=== PATIENT | male | born 1970 | race Caucasian/White ===

== ENCOUNTER → 2020-08-15 10:19 | Outpatient (BNVA) | payer OTHER, SELFPAY | PROVIDERS: PCP Physician Assistant; Visit Provider Orthopaedic Surgery | DX: M17.12 Unilateral primary osteoarthritis, left knee (principal) | CPT/HCPCS: 99202 ==

== ENCOUNTER 2022-12-05 10:54 | Outpatient (REF) | payer OTHER, SELFPAY ==
--- NOTE | ~2022-12-05 | XR_ITS ---
EXAMINATION: XR FOOT, RIGHT CLINICAL INFORMATION: Pain. COMPARISON: None available. TECHNIQUE: AP, lateral, and oblique views of the right foot. FINDINGS: Bony alignment and mineralization are normal. No fracture, dislocation or right ankle joint effusion is seen. Boehler's angle is normal. There is a moderate plantar calcaneal spur. There is moderately severe osteoarthritic change of the first metatarsophalangeal joint. There is mild bunion formation. No focal soft tissue swelling, gas or foreign body is seen. XR/XR foot RT 2V IMPRESSION: 1. No fracture, dislocation or right ankle joint effusion is seen. 2. There is a moderate plantar calcaneal spur. 3. There is marked osteoarthritic change of the first metatarsophalangeal joint. 4. There is mild bunion formation.
== END 2022-12-05 10:55 | disposition home or self-care (01) ==
LOC: HO.XRAY 10:54
PROVIDERS: PCP Physician Assistant; Visit Provider Nurse Practitioner Family
DX: M79.671 Pain in right foot (principal)
CPT/HCPCS: 73620

== ENCOUNTER → 2024-07-16 16:11 | Outpatient (BNVA) | payer OTHER, SELFPAY | PROVIDERS: PCP Physician Assistant; Visit Provider Nurse Practitioner Family | DX: R57.0 Cardiogenic shock (principal); I42.9 Cardiomyopathy, unspecified; F33.1 Major depressive disorder, recurrent, moderate; F11.10 Opioid abuse, uncomplicated; J69.0 Pneumonitis due to inhalation of food and vomit; F17.219 Nicotine dependence, cigarettes, with unspecified nicotine-induced disorders; Z71.6 Tobacco abuse counseling | CPT/HCPCS: 96127; 99212 ==

== ENCOUNTER 2024-07-21 11:25 | Outpatient (AMB) | payer OTHER, SELFPAY ==
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
[2024-07-21 11:55] VITALS: BP 134/70; PULSE 78; O2SAT 98; BMI 26.0
--- OUTSIDE RECORDS SUMMARY | 2024-07-21 13:20 | XMS_ITS | Clinical Summary ---
Author Organization [facility] Address [address] [place] [address] Phone Care Team Providers Care Director Transition Name Role Phone Physician, Pcp Unknown Primary Care Provider Colleen vailable Allergies No known active allergies Medications ibuprofen (ADVIL,MOTRIN) 800 mg tablet 04/11/2024 Active Medical History Medical History Date Comments Known health problems: none Social History Tobacco Use Types Packs/Day Years Used Date Smoking Tobacco: Former Cigarettes Smokeless Tobacco: Never Tobacco Cessation:Counseling Given: Not Answered Sex and Gender Information Value Date Recorded Sex Assigned at Not on file Legal Sex Male 10:50 PM EST Gender Identity Not on file Sexual Orientation Not on file Obstetrics History Last Filed Vital Signs Vital Sign Reading Time Taken Comments Blood Pressure 128/70 04/12/2024 6:45 AM EST Pulse 93 04/12/2024 6:45 AM EST Temperature 36.4 ??C (97.5 ??F) 04/12/2024 6:45 AM ES T Respiratory Rate 18 04/12/2024 6:45 AM EST Oxygen Saturation 98% 04/12/2024 6:45 AM EST Inhaled Oxygen Concentration - - Weight 81.6 kg (180 lb) 04/11/2024 5:51 PM EST Height 177.8 cm (5' 10 ) 04/11/2024 5:51 PM EST Body Mass Index 25.83 04/11/2024 5:51 PM EST Plan of Treatment Health Maintenance Due Date Last Done Comments Hepatitis B Vaccines (1 of 3 - 19+ 3-dose series) 10/08/1987 Zoster Vaccines (1 of 2) 2018 COVID-19 Vaccine (2023-2 5 season) 2024 Influenza Vaccine (#1) 2024 8, 02/03/2016 Cholesterol Screening (Lipid Panel) 03/18/2024 Colorectal Cancer Screening: Colonoscopy 03/18/2024 Depression Screening 03/18/2024 HIV Screening 03/18/2024 Hepatitis C Screening 03/18/2024 Social Influencers of Health Screening 03/18/2024 DTaP,Tdap,and Td Vaccines (3 - Td or Tdap) 07/02/2031 07/02/2021, 07/26/2020 HIB Vaccines Aged Out No longer eligi ble based on patient's age to complete this topic HPV Vaccines Aged Out No longer eligi ble based on patient's age to complete this topic Hepatitis A Vaccines Aged Out No long er eligible based on patient's age to complete this topic IPV Vaccines Aged Out No longer eligi ble based on patient's age to complete this topic MMR Vaccines Aged Out No longer eligi ble based on patient's age to complete this topic Meningococcal ACWY Vaccine Aged Out N o longer eligible based on patient's age to complete this topic Pneumococcal Vaccine: Pediatrics (0 to 5 Years) and At-Risk Patients (6 to 64 Years) Aged Out No longer eligible b ased on patient's age to complete this topic RSV Immunization Patients Under 20 months Aged Out No longer eligible b ased on patient's age to complete this topic Varicella Vaccines Aged Out No longer eligible based on patient's age to complete this topic Insurance MEDICAID - [place] Care Teams Director Transition Relationship Specialty Start Date End Date Physician, Pcp Unknown PCP - General 04/12/24
== END 2024-07-21 12:29 | disposition home or self-care (01) ==
PROVIDERS: PCP Physician Assistant; Visit Provider Physician Assistant
DX: J34.2 Deviated nasal septum (principal); I42.9 Cardiomyopathy, unspecified; F33.1 Major depressive disorder, recurrent, moderate; S46.311A Strain of muscle, fascia and tendon of triceps, right arm, initial encounter; F19.90 Other psychoactive substance use, unspecified, uncomplicated; L73.2 Hidradenitis suppurativa

== ENCOUNTER → 2024-07-21 11:25 | Outpatient (BNVA) | payer OTHER, SELFPAY | PROVIDERS: PCP Physician Assistant; Visit Provider Physician Assistant | DX: J34.2 Deviated nasal septum (principal); S46.311A Strain of muscle, fascia and tendon of triceps, right arm, initial encounter; F19.90 Other psychoactive substance use, unspecified, uncomplicated; I42.9 Cardiomyopathy, unspecified; F33.1 Major depressive disorder, recurrent, moderate; L73.2 Hidradenitis suppurativa | CPT/HCPCS: 96127; 99212 ==

== ENCOUNTER 2024-07-27 07:34 | Outpatient (REF) | payer OTHER, SELFPAY ==
--- NOTE | ~2024-07-27 | XR_ITS ---
EXAMINATION: XR ELBOW, RIGHT CLINICAL INFORMATION: M25.529 - Pain in unspecified elbow COMPARISON: None available. TECHNIQUE: AP, lateral, and oblique views of the right elbow. FINDINGS: No fracture, dislocation, or suspicious bone lesion. No joint effusion. There are mild to moderate arthritic changes in the elbow joint. There is spurring of the coronoid process. Normal alignment. There is mild soft tissue swelling overlying the region of the triceps tendon. There are 2 calcific bodies also noted in the region of the triceps myotendinous junction. Conversely, these could be foci of myositis ossificans. XR/XR elbow RT min 3V IMPRESSION: 1. No acute bony abnormalities. 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 2. No joint effusion. 3. Mild soft tissue swelling in the region of the triceps tendon. See above. Electronically signed by: Umair Yates MD 07/28/2024 08:45 AM KATHLEEN
--- OUTSIDE RECORDS SUMMARY | 2024-07-27 07:37 | XMS_ITS | Clinical Summary ---
Author Organization [facility] Address [address] [place] [address] Phone Care Team Providers Care Pattern Chain Maker Supervisor Name Role Phone Physician, Pcp Unknown Primary [...] of 3 - 19+ 3-dose series) 10/08/1987 Pneumococcal Vaccine: 50+ Years (1 of 1 - PCV) 2018 Zoster Vaccines (1 of 2) 2018 COVID-19 Vaccine ( - 2023-2 5 season) 2024 Influenza Vaccine (#1) 2024 [...] patient's age to complete this topic Meningococcal B Vacine Aged Out No lo nger eligible based on patient's age to complete [...] to complete this topic Insurance MEDICAID - [place] Care Teams Pattern Chain Maker Supervisor Relationship Specialty Start Date End Date Physician, Pcp Unknown PCP - General 04/12/24
== END 2024-07-27 07:35 | disposition home or self-care (01) ==
LOC: HO.HOSX 07:34
PROVIDERS: Visit Provider Physician Assistant
DX: M25.521 Pain in right elbow (principal); M24.121 Other articular cartilage disorders, right elbow
CPT/HCPCS: 73080; 99202

== ENCOUNTER 2024-07-27 09:16 | Outpatient (AMB) | payer OTHER, SELFPAY ==
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
[2024-07-27 09:32] VITALS: BMI 26.0
--- OUTSIDE RECORDS SUMMARY | 2024-07-27 09:55 | XMS_ITS | Clinical Summary ---
Author Organization [facility] Address [address] [place] [address] Phone Care Team Providers Care Treating Machine Operator Name Role Phone Physician, Pcp Unknown Primary [...] to complete this topic Insurance MEDICAID - [place] Care Teams Treating Machine Operator Relationship Specialty Start Date End Date Physician, Pcp Unknown PCP - General 04/12/24
== END 2024-07-27 09:49 | disposition home or self-care (01) ==
PROVIDERS: PCP Physician Assistant; Visit Provider Physician Assistant
DX: M24.121 Other articular cartilage disorders, right elbow (principal)
CPT/HCPCS: 99203

== ENCOUNTER → 2024-07-27 09:20 | Outpatient (BNV) | payer OTHER, SELFPAY | PROVIDERS: Visit Provider Radiology Diagnostic Radiology | DX: M25.521 Pain in right elbow (principal) | CPT/HCPCS: 73080 ==

== ENCOUNTER 2024-09-03 15:01 | Outpatient (AMB) | payer OTHER, SELFPAY ==
--- NOTE | 2024-09-03 15:08 | A.OFFPC_ITS ---
Vital Signs 3 09/03/24 15:10 Height 5 ft 10 in Weight 186 lb 4 oz BMI 26.7 BP 138/74 Blood Pressure Location Lt brachial Position Sitting Pulse 80 Pulse Source Pulse Oximeter Temp 97.3 F Temp Source Temporal Artery Scan Pulse Oximetry (%) 97 Oxygen Delivery Method Room Air Intake Visit Reasons: Annual PE Intake Note: Patient is here today for a physical. Complaint of lump in left arm Ergonomics Technician Required: No Senior Qualitative Researcher: Not Required per policy Accompanied by: Self / Same As Patient Allergies No Known Allergies Allergy (Verified 09/03/24 15:22) Medication List - Last Reconciled 09/03/24 by Nurys Byrd PA-C bupropion HCl XL (Wellbutrin XL) 150 mg PO QAM carvedilol 6.25 mg PO BID doxycycline monohydrate 100 mg PO BID 7 days ibuprofen 800 mg PO Q8H lisinopril 5 mg PO DAILY nicotine (polacrilex) 4 mg buccal Q2H Tobacco use date assessed: 09/03/24 Dental Screening Dental Screen Date: 07/21/24 HPI Annual PE 2 HPI0 Details 53-year-old male with past medical histo ry of erectile dysfunction, substance use disorder, depression, cardiomyopathy last seen 07/2024 by KRISTINA coming in for annual exam. Presenting with concerns regarding subcutaneous lumps. Developed lumps under the skin first noticed a few days ago, which are not painful or itchy. Prefers monitoring the lumps instead of immediate intervention. Reporting Major Depressive Disorder managed with bupropion, recently stopped due to running out. Smoking approximately half a pack of cigarettes per day. Chronic pain affecting knees, hips, and spine, previously evaluated with a recommendation for knee surgery. Seeks medical documentation to address work incapacity due to a tendon injury. He does follow with recovery classes through [facility] Friday and . He has a core coordinator through [facility] to [place] [phone]. Colonoscopy: Previously had Cologuard test not completed would like to do colonoscopy referral placed today. [facility] Surgical History No pertinent past surgical history Family History Father Liver cancer Hepatitis C Cirrhosis Mother No problems noted. 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 1. Little interest or pleasure in doing things: not at all 2. Feeling down, depressed, or hopeless: not at all 3. Trouble falling or staying asleep, or sleeping too much: several days 4. Feeling tired or having little energy: several days 5. Poor appetite or overeating: several days 6. Feeling bad about yourself - or that you are a failure or have let yourself or your family down: several days 7. Trouble concentrating on things, such as reading the newspaper or watching television: not at all 8. Moving or speaking so slowly that other people could have noticed. Or the opposite - being so fidgety or restless that you have been moving around a lot more than usual: several days 9. Thoughts that you would be better off or of hurting yourself in some way: not at all Total score: 5 Depression Screening Interpretation: Positive Depression Screening Follow-up: Existing condition and In treatment Depression Screening Done: Yes Source: Developed by Drs. Kel Danielle, Annie Phipps, Carlos Ghosh and colleagues, with an educational pat from [employer]. Thrive Questionnaire Date Thrive assessed: 09/01/24 I am a: Patient What is your living situation today?: I have a steady place to live Within the past 12 months, did the food you bought not last and you didn't have the money to get more?: Never true Within the past 12 months, did you worry whether your food would run out before you got money to buy more?: Never true Do you have trouble paying for medicines?: I choose not to answer this question Do you have trouble getting transportation to medical appointments?: No Do you have trouble paying your heating and electricity bill?: Yes Do you have trouble taking care of your child, family member or friend?: No Do you have trouble with day-to-day activities such as bathing, preparing meals, shopping, managing finances, etc.?: No Are you currently unemployed and looking for a job?: No Are you interested in more education?: I choose not to answer this question Please select the resources that you would like help with: Utilities Currently or been in a relationship where the following occur: I choose not to answer THRIVE Score: 1 AUDIT C Alcohol Use Questionnaire (AUDIT-C) 1. How often do you have a drink containing alcohol?: Never Total Score: 0 EMIR-7 AMB Questionnaire EMIR-7 Date EMIR - 7 assessed: 07/21/24 Feeling nervous, anxious, or on edge: 0 = Not at all Not being able to stop or control worryin = Not at all Worrying too much about different things: 0 = Not at all Trouble relaxin = Not at all Being so restless that it is hard to sit still: 0 = Not at all Becoming easily annoyed or irritable: 0 = Not at all Feeling afraid as if something awful might happen: 0 = Not at all Total EMIR-7 score (0-4 normal; 5-9 mild; 10-14 moderate; 15-21 severe): 0 Source: Developed by Drs. Kel Danielle, Annie Phipps, Carlos Ghosh and colleagues, with an educational pat from [employer]. EMIR-7 Assessment Billing EMIR-7 Assessment Tool: EMIR-7 Assessment 34881 Review of Systems Const Denies body aches, Denies chills, Reports fatigue, Denies fever(s), Denies headache(s) and Denies poor appetite Eyes Reports no additional complaints ENT Denies dysphagia, Denies dizziness, Denies headache(s) and Denies odynophagia Card Denies chest pain, Denies syncope, Denies edema, Denies irregular heart rhythm, Denies lightheadedness and Denies dyspnea Resp Denies cough and Denies dyspnea GI Denies abdominal pain, Denies constipation, Denies dysphagia, Denies diarrhea, Denies nausea, Denies odynophagia and Denies vomiting Reports no additional complaints Musc Reports no additional complaints and Denies abnormal gait Skin/Breast Reports system reviewed and no additional complaints, except as documented Neuro Denies abnormal gait, Denies dizziness, Denies syncope and Denies headache(s) Psych Reports no additional complaints Endo Reports fatigue Physical exam (Primary Care) Vital Signs: Last Vital Signs Temp 97.3 F 09/03/24 15:10 Pulse 80 09/03/24 15:10 BP 138/74 09/03/24 15:10 Pulse Ox 97 09/03/24 15:10 Oxygen Delivery Method Room Air 09/03/24 15:10 BMI result Body Mass Index 26.7 Tobacco/Smoking Status: Tobacco use Status Tobacco use date assessed 09/03/24 09/03/24 15:14 Patient Tobacco Use Status Current everyday Tobacco 09/03/24 15:16 Tobacco use type Cigarette 09/03/24 15:14 e-Cigarette/Vaping Use Never Used 09/03/24 15:14 PHQ-9: PHQ-9 Score PHQ-9: Total score 5 09/03/24 15:40 Depression Screening Interpretation: Positive Depression Screening Follow-up: Existing condition and In treatment Thrive Assessment: Date of Thrive Assessment Date Thrive assessed 09/01/24 09/03/24 15:14 Currently or been in a relationship where the following occur: I choose not to answer Const General: cooperative, healthy appearing, comfortable and no acute distress Orientation/consciousness: patient oriented x3 HENMT Head: Yes normocephalic Ears: hearing grossly normal bilaterally, external ears normal, TM's normal bilaterally and EAC's normal General nose exam: Normal external nose present Face and sinus: Yes normal facial exam and Yes sinuses nontender Mouth: Normal oral and palatal mucosa present and tongue normal Throat: Yes posterior oropharynx normal Eyes General: appearance normal, both eyes and all related structures Conjunctivae: conjunctivae normal Pupils: Equal, round and reactive pupils present EOM: EOMs intact bilaterally and No Nystagmus present Neck Neck: Yes normal visual inspection, Yes full ROM and Yes no lymphadenopathy Chest Chest palpation & inspection: normal inspection of the chest Resp Effort & Inspection: normal respiratory effort Auscultation: clear to auscultation bilaterally, no crackles, no rales, no rhonchi, no wheezes and breath sounds present Cardio Rate: regular rate Rhythm: regular rhythm Peripheral pulses: radial pulses present and dorsalis pedis present GI Inspection: Yes normal to inspection and No Abdominal wall edema Palpation (GI): Soft to palpation, not firm and nontender Auscultation: normal bowel sounds Rectal Exam - Male: Yes deferred General: Yes no CVA tenderness Back/Spine/Pelvis Back: no CVA tenderness Skin General skin exam: no rashes or lesions noted Neuro General: patient oriented x3 Cranial nerves: Yes Equal, round and reactive pupils present, Yes Midline tongue present, Yes Ability to bilaterally elevate shoulders present and No Nystagmus present Gait exam (Neuro): Normal gait present Extrem General: Yes normal to inspection, Yes full ROM, No no pedal edema and No edema Elbow/forearm/wrist images: 2 1. Soft tissue mass nontender nonerythematous and freely mobile 2. Soft tissue mass nontender nonerythematous and freely mobile Psych Speech and movement: Normal speech and movement present Affect: normal affect Insight: Good insight present (Psych) Judgement: Good judgement present (Psych) Coding Level of Care Code Est Pt Prev Care 40-64y(36448) Diagnoses Internal derangement of elbow M24.129 MDD (major depressive disorder), recurrent episode, moderate F33.1 Cardiomyopathy, unspecified type I42.9 Cardiomyopathy type: unspecified Substance use disorder F19.90 Other male erectile dysfunction N52.8 Erectile dysfunction type: due to other cause Colon cancer screening Z12.11 Annual physical exam Z00.00 Soft tissue mass M79.89 Insomnia G47.00 Additional Codes EMIR-7 Assessment Billing - EMIR-7 Assessment Tool: EMIR-7 Assessment 83784 ([id number]) Assessment & Plan Assessment & Plan (1) Internal derangement of elbow: Code(s): M24.129 - Other articular cartilage disorders, unspecified elbow Category: Medical Plan: Currently following with orthopedics was referred to occupational therapy and has not attended appointments as it is of this time. (2) MDD (major depressive disorder), recurrent episode, moderate: Code(s): F33.1 - Major depressive disorder, recurrent, moderate Category: Medical Plan: Patient has a history major depressive disorder, was recently started on Wellbutrin and does does feel it has been mildly helping but still has symptoms of depression and smoking cravings. Plan to increase to 300 mg and follow up at next visit. (3) Cardiomyopathy: Code(s): I42.9 - Cardiomyopathy, unspecified Category: Medical Qualifiers: Cardiomyopathy type: unspecified Qualified Code(s): I42.9 - Cardiomyopathy, unspecified Plan: As seen. Referral was placed to Cardiology last month (4) Substance use disorder: Code(s): F19.90 - Other psychoactive substance use, unspecified, uncomplicated Category: Medical Plan: Has a history of substance use disorder, recently relapsed with an apparent fentanyl overdose resulting in respiratory arrest in needing to be intubated at [facility]. Also apparently had cardiomyopathy/heart failure and was started on carvedilol and lisinopril. He is currently following with [facility] for classes Friday, Friday, for recovery. (5) Erectile dysfunction: Code(s): N52.9 - Male erectile dysfunction, unspecified Category: Medical Qualifiers: Erectile dysfunction type: due to other cause Qualified Code(s): N52.8 - Other male erectile dysfunction Plan: Denies symptoms at this time. Advised patient to reach out if this changes. (6) Colon cancer screening: Code(s): Z12.11 - Encounter for screening for malignant neoplasm of colon Category: Medical Plan: Referral placed to gastroenterology for colonoscopy. Has had Cologuard in the past but never completed the box and would like to avoid this testing. (7) Annual physical exam: Code(s): Z00.00 - Encounter for general adult medical examination without abnormal findings Category: Medical Plan: Patient is overdue for colonoscopy screening which was ordered today. Blood work is not up-to-date and I reminded the patient to have blood work completed before next visit. Plan to follow up with PCP in October for routine follow up or sooner if new problems arise. (8) Soft tissue mass: Code(s): M79.89 - Other specified soft tissue disorders Category: Medical Plan: Patient has multiple soft tissue masses in the dorsal aspect of the left forearm. Not tender to palpation and not bothersome to the patient unclear of how long they have been there. Patient would like to monitor at this time can consider General surgery referral if he would like them removed. (9) Insomnia: Code(s): G47.00 - Insomnia, unspecified Category: Medical Plan: Patient complaining of insomnia has used melatonin in consistently in the past without good relief. Plan to start on hydroxyzine 10 mg as needed for sleep. Plan The agreed management includes monitoring the subcutaneous lipomas without immediate surgical action and resuming bupropion at an increased dosage of 300 mg for better management of depressive symptoms. The patient has acute insomnia, and hydroxyzine is suggested for trial use. Given the patient's degenerative joint issues, verification of previous surgical advisement may be sought upon SSDI claim support. Preventative health practice will be sustained with the encouragement of regular colon cancer screenings and continuation of blood work previously planned. Smoking cessation strategies are recommended considering current nicotine usage, emphasizing the overall wellness approach to managing ongoing healthcare needs. This note was constructed using voice recognition software. While every effort has been made to ensure accuracy and casing worker, still areas may have been included sometimes these areas may affect the content or meeting of the given symptoms. Total time spent caring for the patient today was 30 minutes. This includes time spent before the visit reviewing the chart, time spent during the visit, and time spent after the visit and documentation. Patient was informed and verbally consented to the use of an ambient scribe for clinic note documentation during this visit. Orders: Referrals 2 Gastroenterology Referral Z12.11 - Encounter for screening for malignant neoplasm of colon Medications: New 2 bupropion HCl XL (Wellbutrin XL) 300 mg PO QAM 90 tabs 0RF hydroxyzine HCl 10 mg PO BEDTIME 30 tabs 0RF
[2024-09-03 15:10] VITALS: BP 138/74; PULSE 80; TEMP 36.3; O2SAT 97; BMI 26.7
== END 2024-09-03 15:39 | disposition home or self-care (01) ==
LOC: HO.HMCH 15:01
DX: M24.129 Other articular cartilage disorders, unspecified elbow (principal); F33.1 Major depressive disorder, recurrent, moderate; I42.9 Cardiomyopathy, unspecified; F19.90 Other psychoactive substance use, unspecified, uncomplicated; N52.8 Other male erectile dysfunction; Z12.11 Encounter for screening for malignant neoplasm of colon; Z00.00 Encounter for general adult medical examination without abnormal findings; M79.89 Other specified soft tissue disorders; G47.00 Insomnia, unspecified

== ENCOUNTER → 2024-09-03 15:01 | Outpatient (BNVA) | payer OTHER, SELFPAY | DX: Z00.01 Encounter for general adult medical examination with abnormal findings (principal); M24.129 Other articular cartilage disorders, unspecified elbow; F33.1 Major depressive disorder, recurrent, moderate; I42.9 Cardiomyopathy, unspecified; F19.90 Other psychoactive substance use, unspecified, uncomplicated; N52.8 Other male erectile dysfunction; M79.89 Other specified soft tissue disorders; G47.00 Insomnia, unspecified | CPT/HCPCS: 96127; 99396 ==

== ENCOUNTER 2024-11-22 12:42 | Outpatient (AMB) | payer OTHER, SELFPAY ==
--- NOTE | 2024-11-22 12:50 | A.OFFVIS_ITS ---
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 He said he has prior history of drug abuse and was clean but then had a slip up and then he had a being in the hospital. At that time because of respiratory failure underwent echocardiogram which had shown LV systolic dysfunction with LVEF of 35-40%. He was then started on carvedilol and lisinopril which he is currently not taking. He said he has not been able to get to the pharmacy on time and has not refill his medications. He has prior history of mental disorder with anxiety and depression. He also has history of insomnia. He says currently does not use any drugs but has restarted smoking. Currently not having any symptoms. He does not see the need to take medications as per him. He denies any orthopnea, PND, leg edema denies any prolonged palpitation irregular heartbeat. No lightheadedness, syncope. [facility] Surgical History No pertinent past surgical history Family History Father Liver cancer Hepatitis C Cirrhosis Mother No problems noted. 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 Cognitive needs: No Hearing needs: No Vision needs: Yes (glasses) Review of Systems Const Denies chills, Denies daytime sleepiness, Denies fatigue, Denies fever(s), Denies frequent falls, Denies poor appetite, Denies snoring, Denies stops breathing during sleep, Denies weakness, Denies weight gain and Denies weight loss Eyes Denies loss of vision ENT Denies dizziness and Denies hearing loss Card Denies chest pain, Denies claudication, Denies leg edema, Denies lightheadedness, Denies palpitations, Denies dyspnea, Denies dyspnea on exertion and Denies orthopnea Resp Denies cough, Denies excessive phlegm production, Denies dyspnea, Denies dyspnea on exertion, Denies snoring and Denies wheezing GI Denies abdominal pain, Denies hematochezia, Denies change in bowel habits, Denies nausea and Denies vomiting Denies dysuria and Denies urinary frequency Musc Denies arthralgias, Denies muscle weakness, Denies numbness and Denies other (frequent falls) Skin/Breast Denies nail changes and Denies rash Neuro Denies Abnormal speech present, Denies dizziness, Denies frequent falls, Denies loss of vision, Denies memory loss, Denies numbness and Denies weakness Psych Denies depression and Denies memory loss Endo Denies fatigue and Denies palpitations Maksim/Lymph Reports easy bruising and Reports other (anemia) Aller/Immun Denies wheezing Physical Exam Vital Signs: Last Vital Signs Pulse 92 11/22/24 12:51 BP 150/70 H 11/22/24 12:51 BMI result Body Mass Index 24.7 Const General: cooperative, comfortable, no acute distress, well developed, alert, awake and poor hygiene Nutritional Appearance: average body habitus and well nourished Orientation/consciousness: patient oriented x3 Limitations: no limitations HEENT Head: Yes normocephalic and Yes atraumatic Neck Neck: Yes trachea midline, Yes supple and Yes no JVD Resp Effort & Inspection: normal respiratory effort Auscultation: clear to auscultation bilaterally Cardio Jugular venous distension: no JVD Palpation: normal PMI Rate: regular rate Rhythm: regular rhythm Heart sounds: S1 normal heart sound present, S2 normal heart sound present, no click, no gallops, no murmurs and no rubs GI Auscultation: normal bowel sounds Skin General skin exam: no rashes or lesions noted Neuro General: patient oriented x3 and no focal motor deficits Speech: No Abnormal speech present Extrem General: Yes no clubbing, cyanosis or edema Office Procedures EKG Details: EKG shows normal sinus rhythm with normal EKG [id number], Complete Assessment & Plan Assessment & Plan (1) Cardiomyopathy: Code(s): I42.9 - Cardiomyopathy, unspecified Category: Medical Qualifiers: Cardiomyopathy type: unspecified Qualified Code(s): I42.9 - Cardiomyopathy, unspecified Plan: Patient noted a cardiomyopathy when he was admitted with acute medical illness with respiratory failure related to narcotic overdose. Patient that time was started on carvedilol and lisinopril but since has not been compliant with me dications. He said he has difficulty with getting the pharmacy and being compliant with picking up medications. He is noted to have elevated blood pressure today. Importance of taking medications to control the blood pressure was discussed. Avoidance of cardiotoxic agents including cocaine/alcohol was discussed. He shows understanding but not sure if he is willing to take medications. If he is willing to take medications that would prescribing valsartan 80 mg daily and check BNP in 1-2 weeks. Maximize medications as tolerated to have maximal effect in the blood pressure target goal blood pressure less than 130/84. As possible as cardiomyopathy process was stress- induced cardiomyopathy related to acute medical illness and will recheck his LV ejection fraction to see if there is normalization of his LV function. If not will pursue ischemic workup. Will follow up in the clinic 1 year's time, sooner p.r.n.. Thank you for allowing me to partake in his care Orders: Orders CA Echo Limited Today I42.9 - Cardiomyopathy, unspecified Coding Level of Care Code New Pt Level 4 (62553) Complex EM visit Add On G2211 Diagnoses Cardiomyopathy, unspecified type I42.9 Cardiomyopathy type: unspecified CPT Codes EKG - CPT: 55545-[id number], Complete ([id number])
[2024-11-22 12:51] VITALS: BP 150/70; PULSE 92; BMI 24.7
--- OUTSIDE RECORDS SUMMARY | 2024-11-22 14:02 | XMS_ITS | Encounter Summary ---
Author Organization [email or web address] Address [address] [place] [address] Care Team Providers Care Cook Morning Name Role Phone Physician, Pcp Unknown Primary Care Provider Colleen vailable Encounter Details Date Type Department Care Team (Late st Contact Info) Description 08/05/2024 Lab Requisition [facility] Lab [address] [facility] [address] Anay Lundy MD [facility] [place] [address] Opioid dependence with unspecified opioid-induced disorder (CMS/HCC V24, CMS/HCC V28) Social History Tobacco Use Types Packs/Day Years Used Date Smoking Tobacco: Former Cigarettes Smokeless Tobacco: Never Sex and Gender Information Value Date Recorded Sex Assigned at Not on file Legal Sex Male 10:50 PM EST Gender Identity Not on file Sexual Orientation Not on file documented as of this encounter Functional Status * Are you deaf or do you have serious difficulty hearing? Answer Date of Assessment Author No 04/12/2024 5:21 AM Mary Kate Collins RN * Are you blind or do you have serious difficulty seeing, even when wearing glasses? Answer Date of Assessment Author No 04/12/2024 5:21 AM Mary Kate Collins RN * Do you have serious difficulty walking or climbing stairs? Answer Date of Assessment Author No 04/12/2024 5:21 AM Mary Kate Collisn RN * Do you have serious difficulty dressing or bathing? Answer Date of Assessment Author No 04/12/2024 5:21 AM Mary Kate Collins RN * Because of a physical, mental, or emotional condition, do you have serious difficulty doing errandsalone such as visiting the doctor? Answer Date of Assessment Author No 04/12/2024 5:21 AM Mary Kate Collins RN documented as of this encounter Mental Status * Because of a physical, mental, or emotional condition, do you have serious difficulty concentrating, remembering, or making decisions? (5 years old or older) Answer Entry Date Author No 04/12/2024 5:21 AM Mary Kate Collins RN documented in this encounter Plan of Treatment Not on file documented as of this encounter Procedures Procedure Name Priority Date/Time Associated Diagnosis Comments URINALYSIS WITH REFLEX MICROSCOPIC Routine 08/05/2024 11:00 AM EST Opioid dependence with unspecified opioid-induced disorder (CMS/HCC) URINALYSIS WITH REFLEX MICROSCOPIC Routine 08/05/2024 11:00 AM EST Opioid dependence with unspecified opioid-induced disorder (CMS/HCC) ETHYL GLUCURONIDE SCREEN WITH REFLEX CONFIRMATION, URINE Routine 08/05/2024 11:00 AM EST Opioid dependence with unspecified opioid-induced disorder (CMS/HCC) DRUG ABUSE SCREEN 8A PANEL, URINE Routine 08/05/2024 11:00 AM EST Opioid dependence with unspecified opioid-induced disorder (CMS/HCC) METHADONE SCREEN, URINE Routine 08/05/2024 11:00 AM EST Opioid dependence with unspecified opioid-induced disorder (CMS/HCC) ETHANOL, URINE QUALITATIVE Routine 08/05/2024 11:00 AM EST Opioid dependence with unspecified opioid-induced disorder (CMS/HCC) documented in this encounter Results * Ethanol, urine qualitative (08/05/2024 11:00 AM EST) Ethanol Screen, Ur Negative Negative LAB CHEMISTRY METHOD 08/05/2024 7:53 PM EST [facility] Comment: Assay cutoff 50 mg/dL Semi-quantitative assay for screening purposes only. Unconfirmed screening result should not be used for non-medical purposes. Urine Urine specimen obtained by clean catch procedure / Unknown 08/05/2024 11:00 AM EST 08/05/2024 3:48 PM EST us Anay Lundy MD LAB URINE ORDERABLES Fi nal Result [facility] [address] [place] [address], [place] [phone] * Urinalysis with reflex microscopic (08/05/2024 11:00 AM EST) Specific [place] Urine 1.016 1.003 - 1.030 LAB URINALYSIS - AUTOMATED METHOD 08/05/2024 4:30 PM [facility] pH, Urine 6.5 5.0 - 8.0 pH LAB URINALYSIS - AUTOMATED METHOD 08/05/2024 4:30 PM [facility] Leukocytes, Urine Negative Negative LAB URINALYSIS - AUTOMATED METHOD 08/05/2024 4:30 PM [facility] Nitrite, Urine Negative Negative LAB URINALYSIS - AUTOMATED METHOD 08/05/2024 4:30 PM [facility] Protein, Urine Negative <=Trace mg/dL LAB URINALYSIS - AUTOMATED METHOD 08/05/2024 4:30 PM [facility] Glucose, Urine Negative Negative mg/dL LAB URINALYSIS - AUTOMATED METHOD 08/05/2024 4:30 PM [facility] Ketones, Urine Negative Negative mg/dL LAB URINALYSIS - AUTOMATED METHOD 08/05/2024 4:30 PM [facility] Urobilinogen, Urine 1.0 0.2 - 1.0 mg/dL LAB URINALYSIS - AUTOMATED METHOD 08/05/2024 4:30 PM [facility] Bilirubin, Urine Negative Negative LAB URINALYSIS - AUTOMATED METHOD 08/05/2024 4:30 PM [facility] Blood, Urine Negative Negative LAB URINALYSIS - AUTOMATED METHOD 08/05/2024 4:30 PM [facility] Urine Urine specimen obtained by clean catch procedure / Unknown 08/05/2024 11:00 AM EST 08/05/2024 3:02 PM EST Anay Ludny MD LAB URINE ORDERABLES Fi nal Result Performing Organization Address [facility] Co de Phone Number [facility] [address] [place] [address], [place] [phone] * Methadone, urine (08/05/2024 11:00 AM EST) Methadone Screen, Urine Negative Negative LAB CHEMISTRY METHOD 08/05/2024 8:02 PM [facility] Comment: Assay cutoff 300 ng/mL Semi-quantitative assay for screening purposes only. Unconfirmed screening result should not be used for non-medical purposes. *ALTERNATE METHOD CONFIRMATION DONE UPON REQUEST ONLY* Urine Urine specimen obtained by clean catch procedure / Unknown 08/05/2024 11:00 AM EST 08/05/2024 3:02 PM EST Anay Lundy MD LAB URINE ORDERABLES Fi nal Result Performing Organization Address [facility] de Phone Number [facility] [address] [place] [address], [place] [phone] * Drug abuse screen 8a panel, urine (08/05/2024 11:00 AM EST) Amphetamine Screen, Ur Negative Negative LAB CHEMISTRY METHOD 08/05/2024 8:02 PM [facility] Comment:Certain OTC medicati ons containing ephedrine, phenylephrine, pseudoephedrine and phenylpropanolamine can cause false positive results. Barbiturate Screen, Ur Negative Negative LAB CHEMISTRY METHOD 08/05/2024 8:02 PM [facility] Benzodiazepine Screen, Ur Negative Negative LAB CHEMISTRY METHOD 08/05/2024 8:02 PM [facility] Cocaine Screen, Ur Negative Negative LAB CHEMISTRY METHOD 08/05/2024 8:02 PM EST [facility] Opiate Screen, Ur Negative Negative LAB CHEMISTRY METHOD 08/05/2024 8:02 PM EST [facility] Cannabinoid (THC) Screen, Ur Negative Negative LAB CHEMISTRY METHOD 08/05/2024 8:02 PM EST [facility] Comment:Specimens from patie nts taking pantoprazole sodium (Protonix) have been shown to produce false positive results. Oxycodone Screen, Ur Negative Negative LAB CHEMISTRY METHOD 08/05/2024 8:02 PM EST [facility] Fentanyl, Ur Negative Negative LAB CHEMISTRY METHOD 08/05/2024 8:02 PM [facility] Urine Urine specimen obtained by clean catch procedure / Unknown 08/05/2024 11:00 AM EST 08/05/2024 3:02 PM EST [facility] - 08/05/2024 8:02 PM EST Assay cutoffs: Amphetamines ? 1000 ng/mL Barbiturates ?200 ng/mL Benzodiazepines ?? 200 ng/mL Cocaine ? 300 ng/mL Fentanyl ?1 ng/mL Opiates ? 300 ng/mL Oxycodone ? 100 ng/mL THC ?50 ng/mL Semi-quantitative assay for screening purposes only. Unconfirmed screening result should not be used for non-medical purposes. *ALTERNATE METHOD CONFIRMATION DONE UPON REQUEST ONLY* us Anay Lundy MD LAB URINE ORDERABLES Fi nal Result [facility] [address] [place] [address], * Ethyl glucuronide urine with reflex confirmation (08/05/2024 11:00 AM EST) Ethyl Sulfate Urine TNP ng/mL 08/10 7:35 AM EST [facility] Ethyl Glucuronide Negative ng/mL 025 7:35 AM EST [facility] Comment: ?Decision Limit ?Drug Analyzed ? Screen ?? Confirmation ?Units ?-------- ?----- ?Ethyl Glucuronide ? 500 ?500 ? ng/mL ?Ethyl Sulfate ? N/A ?200 ? ng/mL Consumption of 30 to 33 fl. oz. of beer: (4.2 percent w/v) can result in urinary ethyl glucuronide concentrations of 22,000 to 67,000 ng/mL at 3 hours. Ethyl glucuronide can be routinely quantified in urine for about 20 hours after a single drink of an ethanol containing beverage (up to 80 hours after heavy ethanol consumption). Both ethyl glucuronide (ETG) and ethyl sulfate (ETS) are metabolites of ethanol. ??Detection of ETS confirms that the presence of ETG is not a result of in vitro fermentation of sugars. ??It is known that bacterial fermentation would generate ETG in vitro, but not ETS. Under normal situation, detection of both metabolites concurrently after alcohol consumption is likely. However, due to the genetic polymorphism in the general population, and/or the timing of the specimen collection after drinking, detection of only one metabolite, either ETG or ETS is possible. MRO evalution is recommended for forensic issues. If applicable, any drug confirmation testing reported here was developed and the performance characteristics determined by [facility]. This confirmation testing has not been cleared or approved by the FDA. The laboratory is regulated under CLIA as qualified to perform high-complexity testing. This test is used for patient testing purposes. It should not be regarded as investigational or for research. Test performed at [facility], [address], [place], [place] ??[address] ? [phone] Mirlande Lo MD, PhD - Pr Internship Urine Urine specimen from urethra / Unknown 08/05/2024 11:00 AM EST 08/05/2024 3:02 PM EST us Anay Lundy MD LAB URINE ORDERABLES Fi nal Result Performing Organization Address City/State/[facility] Co de Phone Number [facility] [address] [place] [address] documented in this encounter Visit Diagnoses Diagnosis Opioid dependence with unspecified opioid-induced disorder (CMS/HCC V24, CMS/HCC V28) documented in this encounter Care Teams Cook Morning Relationship Specialty Start Date End Date Physician, Pcp Unknown PCP - General 04/12/24 documented as of this encounter
== END 2024-11-22 13:19 | disposition home or self-care (01) ==
LOC: HO.HCS 12:42
PROVIDERS: Visit Provider Internal Medicine Cardiovascular Disease
DX: I42.9 Cardiomyopathy, unspecified (principal)
CPT/HCPCS: 93010; 99204; G2211

== ENCOUNTER → 2024-11-22 12:42 | Outpatient (BNVA) | payer OTHER, SELFPAY | PROVIDERS: Visit Provider Internal Medicine Cardiovascular Disease | DX: Z86.59 Personal history of other mental and behavioral disorders (principal); I42.9 Cardiomyopathy, unspecified | CPT/HCPCS: 93005; 99202 ==

== ENCOUNTER → 2024-12-29 12:35 | Outpatient (REF) | payer OTHER, SELFPAY ==
--- NOTE | 2024-12-29 12:38 | CA_ITS ---
Transthoracic Echocardiogram Patient (Last, First, Middle): Angus Crum, Gender: Male Date of : 1970 Age: 54 Procedure Date: 12/29/2024 Procedure Type: Transthoracic Echocardiogram Location: OP Height: 177.8 cm Weight: 79.38 kg BSA: 1.97 m2 Heart Rate: bpm BP: 124 / 66 mmHg Machine Mover: /RC Referring MD: Rogelio Zimmerman MD Book Critic: Rogelio Zimmerman MD Symptoms: I42.9 - Cardiomyopathy, unspecified Study Quality: Good ECG Rhythm: Sinus Conclusions: - 1. Normal LV ejection fraction 55-60% with grade 1 diastolic dysfunction 2. Normal cardiac valvular Dopplers 3. No gross pericardial effusion Findings Left Ventricle Normal left ventricular size, thickness, and systolic function. The visually estimated ejection fraction is between 55-60%. Spectral Doppler is indicative of an impaired relaxation filling pattern. E/E prime ratio is <8, consistent with normal filling pressures. Evidence suggests grade I (mild) diastolic dysfunction. Right Ventricle Normal right ventricular cavity size and systolic function. Atria Both atria are normal in size. There is no evidence of interatrial shunt. Aortic Valve Normal aortic valve structure and function. There is no aortic valve stenosis. There is no aortic valve regurgitation. Mitral Valve Normal mitral valve structure and function. There is no mitral valve regurgitation. There is no mitral valve stenosis. Pulmonic Valve The pulmonic valve is likely normal. Tricuspid Valve Normal tricuspid valve structure. Tricuspid regurgitation envelope is inadequate for calculation of right ventricular systolic pressure. Normal right atrial pressure. Great Vessels All visible segments of the aorta are normal in size. The pulmonary artery was not well visualized. There is no dilatation of the ascending aorta measuring 2.90 cm. Venous The inferior vena cava is normal in size and collapses greater than 50% with inspiration. Pericardium/Pleural There is no evidence of pericardial effusion. Prior Study Comparison no previous study for comparison Measurements 2D Linear Measurements IVSd: 0.96 0.6-0.9/0.6-1.0 cm LVIDd: 5.04 3.9-5.3/4.2-5.9 cm LVIDd Index: 2.56 2.4-3.2/2.2-3.1 cm/m2 LVIDs: 3.20 2.0-3.6 cm LVPWd: 1.00 0.7-1.1 cm Ao Root: 3.40 2.1-3.5 cm LA Diam: 3.70 2.7-3.8/3.0-4.0 cm LAIDs Index: 1.88 1.5-2.3 cm/m2 LV Mass: 222.96 67-162/88-224 g LV Mass Index: 113.18 43-95/49-115 g/m2 LVOT Diam: 2.40 3.0+(-)1.3 cm 2D Systolic Function EF 4C: 53.40 >55% EF 2C: 57.40 >55% EF BiP: 55.70 >55% Mitral Valve MV Pk E: 0.50 MV PK A: 0.80 MV Decel Time: 190.00 E/A: 0.60 E'Lateral: 7.18 E'Medial: 6.85 E/E' Med: 7.30 E/E' Lat: 7.00 PHT: 56.00 MVA PHT: 3.93 Decel Rock: 2.63 Aortic Valve AoV Pk Hernando: 1.10 AoV Mn Hernando: 0.74 AoV VTI: 0.20 AoV Pk Grad: 5.00 Aov Mn Grad: 2.00 KENNETH Cont.VTI: 4.43 LVOT LVOT Pk [place]: 1.11 LVOT Mn [place]: 0.71 LVOT VTI: 0.20 LVOT Pk Grad: 5.00 LVOT Mn Grad: 2.00 LVOT Diam: 2.40 LVOT Area: 4.52 Diastolic Function MV Pk E: 0.50 MV Pk A: 0.80 E/A: 0.60 E'Medial: 6.85 E/E' Med: 7.30 E' Laterial: 7.18 E/E' Lat: 7.00 Right Ventricle TAPSE (mm): 22.00 TVS' Hernando: 15.00 Tricuspid Valve TR Pk Hernando: 2.15 TR Pk Grad: 18.00 RA Press: 3.00 Great Vessels Aorta Ao Root-2D: 3.40 2.0-3.7 cm Ao Asc: 2.90 2.1-3.4 cm Pulmonary Valve PV Pk Hernando: 0.92 Peak PV Grad: 3.00 Updated in Other Vendor System with Status of Final Rogelio Zimmerman MD electronically signed on 12/29/2024 2:23:32 PM with status of Final
--- OUTSIDE RECORDS SUMMARY | 2024-12-29 12:59 | XMS_ITS | Encounter Summary ---
Author Organization [employer] Address [address] [place] [address] Care Team Providers Care Scrap Carrier Name Role Phone Physician, Pcp Unknown Primary Care Provider Colleen vailable Encounter Details Date Type Department Care Team (Late st Contact Info) Description 08/05/[address] [facility] Lab [address] [facility] [place] [address] Anay Lundy MD [facility] [place] [address] Opioid dependence with unspecified opioid-induced disorder (CMS/HCC [...] LAB CHEMISTRY METHOD 08/05/2024 7:53 PM EST [facility] Comment: Assay cutoff 50 mg/dL Semi-quantitative assay for screening purposes only. Unconfirmed screening result should not be used for non-medical purposes. Urine Urine specimen obtained by clean catch procedure / Unknown 08/05/2024 11:00 AM EST 08/05/2024 3:48 PM EST us Anay Lundy MD LAB URINE ORDERABLES Fi nal Result [facility] [address] [place] [address], [place] [phone] * Urinalysis with reflex microscopic (08/05/2024 11:00 AM EST) Specific [place] Urine 1.016 1.003 - 1.030 LAB URINALYSIS - AUTOMATED METHOD 08/05/2024 4:30 PM [facility] pH, Urine 6.5 5.0 - 8.0 pH LAB URINALYSIS - AUTOMATED METHOD 08/05/2024 4:30 PM [facility] Leukocytes, Urine Negative Negative LAB URINALYSIS - AUTOMATED METHOD 08/05/2024 4:30 PM [facility] Nitrite, Urine Negative Negative LAB URINALYSIS - AUTOMATED METHOD 08/05/2024 4:30 PM [facility] Protein, Urine Negative <=Trace mg/dL LAB URINALYSIS - AUTOMATED METHOD 08/05/2024 4:30 PM [facility] Glucose, Urine Negative Negative mg/dL LAB URINALYSIS - AUTOMATED METHOD 08/05/2024 4:30 PM [facility] Ketones, Urine Negative Negative mg/dL LAB URINALYSIS - AUTOMATED METHOD 08/05/2024 4:30 PM [facility] Urobilinogen, Urine 1.0 0.2 - 1.0 mg/dL LAB URINALYSIS - AUTOMATED METHOD 08/05/2024 4:30 PM [facility] Bilirubin, Urine Negative Negative LAB URINALYSIS - AUTOMATED METHOD 08/05/2024 4:30 PM [facility] Blood, Urine Negative Negative LAB URINALYSIS - AUTOMATED METHOD 08/05/2024 4:30 PM [facility] Urine Urine specimen obtained by clean catch procedure / Unknown 08/05/2024 11:00 AM EST 08/05/2024 3:02 PM EST Anay Lundy MD LAB URINE ORDERABLES Fi nal Result Performing Organization Address [facility] Co de Phone Number [facility] [address] [place] [address], [place] [phone] * Methadone, urine (08/05/2024 11:00 AM EST) Methadone Screen, Urine Negative Negative LAB CHEMISTRY METHOD 08/05/2024 8:02 PM [facility] Comment: Assay cutoff 300 ng/mL Semi-quantitative assay for screening purposes only. Unconfirmed screening result should not be used for non-medical purposes. *ALTERNATE METHOD CONFIRMATION DONE UPON REQUEST ONLY* Urine Urine specimen obtained by clean catch procedure / Unknown 08/05/2024 11:00 AM EST 08/05/2024 3:02 PM EST Anay Lundy MD LAB URINE ORDERABLES Fi nal Result Performing Organization Address [facility] de Phone Number [facility] [address] [place] [address], [place] [phone] * Drug abuse screen 8a panel, urine (08/05/2024 11:00 AM EST) Amphetamine Screen, Ur Negative Negative LAB CHEMISTRY METHOD 08/05/2024 8:02 PM [facility] Comment:Certain OTC medicati ons containing ephedrine, phenylephrine, pseudoephedrine and phenylpropanolamine can cause false positive results. Barbiturate Screen, Ur Negative Negative LAB CHEMISTRY METHOD 08/05/2024 8:02 PM [facility] Benzodiazepine Screen, Ur Negative Negative LAB CHEMISTRY METHOD 08/05/2024 8:02 PM [facility] Cocaine Screen, Ur Negative Negative LAB CHEMISTRY METHOD 08/05/2024 8:02 PM [facility] Opiate Screen, Ur Negative Negative LAB CHEMISTRY METHOD 08/05/2024 8:02 PM [facility] Cannabinoid (THC) Screen, Ur Negative Negative LAB CHEMISTRY METHOD 08/05/2024 8:02 PM [facility] Comment:Specimens from patie nts taking pantoprazole sodium (Protonix) have been shown to produce false positive results. Oxycodone Screen, Ur Negative Negative LAB CHEMISTRY METHOD 08/05/2024 8:02 PM [facility] Fentanyl, Ur Negative Negative LAB CHEMISTRY METHOD 08/05/2024 8:02 PM [facility] Urine Urine specimen obtained by clean catch procedure / Unknown 08/05/2024 11:00 AM EST 08/05/2024 3:[address] [facility] - 08/05/2024 8:02 PM EST Assay cutoffs: Amphetamines 1000 ng/mL Barbiturates 200 ng/mL Benzodiazepines 200 ng/mL Cocaine 300 ng/mL Fentanyl 1 ng/mL Opiates 300 ng/mL Oxycodone 100 ng/mL THC 50 ng/mL Semi-quantitative assay for screening purposes only. Unconfirmed screening result should not be used for non-medical purposes. *ALTERNATE METHOD CONFIRMATION DONE UPON REQUEST ONLY* Anay Lundy MD LAB URINE ORDERABLES [facility] Result [facility] [address] [place] [address], * Ethyl glucuronide urine with reflex confirmation (08/05/2024 11:00 AM EST) Ethyl Sulfate Urine TNP ng/mL 08/10 7:35 AM EST [facility] Ethyl Glucuronide Negative ng/mL 025 7:35 AM EST [facility] Comment: Decision Limit Drug Analyzed Screen Confirmation Units -------- ----- Ethyl Glucuronide 500 500 ng/mL Ethyl Sulfate N/A 200 ng/mL Consumption of 30 to 33 fl. [...] ethyl sulfate (ETS) are metabolites of ethanol. Detection of ETS confirms that the presence of ETG is not a result of in vitro fermentation of sugars. It is known that bacterial fermentation would generate [...] developed and the performance characteristics determined by [facility]. This confirmation testing has not been cleared or approved by the FDA. The laboratory is regulated under CLIA as qualified to perform high-complexity testing. This test is used for patient testing purposes. It should not be regarded as investigational or for research. Test performed at [facility], [address] , [place] [address] Mirlande Lo MD, PhD - Boat [employer]ar [employer] Urine Urine specimen from urethra / Unknown 08/05/2024 11:00 AM EST 08/05/2024 3:02 PM EST us Anay Lundy MD LAB URINE ORDERABLES nal Result [facility] [address] [place], [place] [id number] documented in this encounter Visit Diagnoses Diagnosis Opioid dependence with unspecified opioid-induced disorder (CMS/HCC V24, CMS/HCC V28) documented in this encounter Care Teams Scrap Carrier Relationship Specialty Start Date End Date Physician, Pcp Unknown PCP - General 04/12/24 documented as of this encounter
== END ==
LOC: HO.CARD 12:35
PROVIDERS: Visit Provider Internal Medicine Cardiovascular Disease
DX: I42.9 Cardiomyopathy, unspecified (principal)
CPT/HCPCS: 93306

== ENCOUNTER → 2024-12-29 12:38 | Outpatient (BNV) | payer OTHER, SELFPAY | PROVIDERS: Visit Provider Internal Medicine Cardiovascular Disease | DX: I42.9 Cardiomyopathy, unspecified (principal) | CPT/HCPCS: 93306 ==

== ENCOUNTER 2025-02-16 14:37 | Outpatient (AMB) | payer OTHER, SELFPAY ==
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
[2025-02-16 15:10] VITALS: BP 136/86; PULSE 85; TEMP 36.3; O2SAT 98; BMI 24.0
--- OUTSIDE RECORDS SUMMARY | 2025-02-16 17:51 | XMS_ITS | Encounter Summary ---
Author Organization [facility] Address [address] [place] [address] Care Team Providers Care Homemaking Rehabilitation Consultant Name Role Phone Physician, Pcp Unknown Primary Care Provider Colleen vailable Encounter Details Date Type Department Care Team (Late st Contact Info) Description 08/05/2024 Lab Requisition [facility] [address] [facility] [place] [address] Anay Lundy MD Formerly [facility] [place] [address] Opioid dependence with unspecified opioid-induced disorder (CMS/HCC [...] LAB CHEMISTRY METHOD 08/05/2024 7:53 PM EST [facility] Comment: Assay cutoff 50 mg/dL Semi-quantitative assay for screening purposes only. Unconfirmed screening result should not be used for non-medical purposes. Urine Urine specimen obtained by clean catch procedure / Unknown 08/05/2024 11:00 AM EST 08/05/2024 3:48 PM EST us Anay Lundy MD LAB URINE ORDERABLES Fi nal Result [facility] [address] [place] [address], [place] [phone] * Urinalysis with reflex microscopic (08/05/2024 11:00 AM EST) Specific [place] Urine 1.016 1.003 - 1.030 LAB URINALYSIS - AUTOMATED METHOD 08/05/2024 4:30 PM [facility] pH, Urine 6.5 5.0 - 8.0 pH LAB URINALYSIS - AUTOMATED METHOD 08/05/2024 4:30 PM [facility] Leukocytes, Urine Negative Negative LAB URINALYSIS - AUTOMATED METHOD 08/05/2024 4:30 PM [facility] Nitrite, Urine Negative Negative LAB URINALYSIS - AUTOMATED METHOD 08/05/2024 4:30 PM [facility] Protein, Urine Negative <=Trace mg/dL LAB URINALYSIS - AUTOMATED METHOD 08/05/2024 4:30 PM [facility] Glucose, Urine Negative Negative mg/dL LAB URINALYSIS - AUTOMATED METHOD 08/05/2024 4:30 PM [facility] Ketones, Urine Negative Negative mg/dL LAB URINALYSIS - AUTOMATED METHOD 08/05/2024 4:30 PM [facility] Urobilinogen, Urine 1.0 0.2 - 1.0 mg/dL LAB URINALYSIS - AUTOMATED METHOD 08/05/2024 4:30 PM [facility] Bilirubin, Urine Negative Negative LAB URINALYSIS - AUTOMATED METHOD 08/05/2024 4:30 PM [facility] Blood, Urine Negative Negative LAB URINALYSIS - AUTOMATED METHOD 08/05/2024 4:30 PM [facility] Urine Urine specimen obtained by clean catch procedure / Unknown 08/05/2024 11:00 AM EST 08/05/2024 3:02 PM EST Anay Lundy MD LAB URINE ORDERABLES Fi nal Result Performing Organization Address [facility] Co de Phone Number [facility] [address] [place] [address], [place] [phone] * Methadone, urine (08/05/2024 11:00 AM EST) Methadone Screen, Urine Negative Negative LAB CHEMISTRY METHOD 08/05/2024 8:02 PM [facility] Comment: Assay cutoff 300 ng/mL Semi-quantitative assay for screening purposes only. Unconfirmed screening result should not be used for non-medical purposes. *ALTERNATE METHOD CONFIRMATION DONE UPON REQUEST ONLY* Urine Urine specimen obtained by clean catch procedure / Unknown 08/05/2024 11:00 AM EST 08/05/2024 3:02 PM EST Anay Lundy MD LAB URINE ORDERABLES Fi nal Result Performing Organization Address [facility] de Phone Number [facility] [address] [place] [address], [place] [phone] * Drug abuse screen 8a panel, urine (08/05/2024 11:00 AM EST) Amphetamine Screen, Ur Negative Negative LAB CHEMISTRY METHOD 08/05/2024 8:02 PM [facility] Comment:Certain OTC medicati ons containing ephedrine, phenylephrine, pseudoephedrine and phenylpropanolamine can cause false positive results. Barbiturate Screen, Ur Negative Negative LAB CHEMISTRY METHOD 08/05/2024 8:02 PM [facility] Benzodiazepine Screen, Ur Negative Negative LAB CHEMISTRY METHOD 08/05/2024 8:02 PM [facility] Cocaine Screen, Ur Negative Negative LAB CHEMISTRY METHOD 08/05/2024 8:02 PM [facility] Opiate Screen, Ur Negative Negative LAB CHEMISTRY METHOD 08/05/2024 8:02 PM [facility] Cannabinoid (THC) Screen, Ur Negative Negative LAB CHEMISTRY METHOD 08/05/2024 8:02 PM [facility] Comment:Specimens from patie nts taking pantoprazole sodium (Protonix) have been shown to produce false positive results. Oxycodone Screen, Ur Negative Negative LAB CHEMISTRY METHOD 08/05/2024 8:02 PM [facility] Fentanyl, Ur Negative Negative LAB CHEMISTRY METHOD 08/05/2024 8:02 PM [facility] Urine Urine specimen obtained by clean [...] ONLY* Anay Lundy MD LAB URINE ORDERABLES [facility] Result [facility] [address] [place] [address], * Ethyl glucuronide urine with reflex confirmation [...] developed and the performance characteristics determined by [facility]. This confirmation testing has not been cleared or approved by the FDA. The laboratory is regulated under CLIA as qualified to perform high-complexity testing. This test is used for patient testing purposes. It should not be regarded as investigational or for research. Test performed at [facility], [address] , [place] [address] Mirlande Lo MD, PhD - [employer] Urine Urine specimen from urethra / Unknown 08/05/2024 11:00 AM EST 08/05/2024 3:02 PM EST us Anay Lundy MD LAB URINE ORDERABLES nal Result [facility] [address] [place], [place] [id number] documented in this encounter Visit Diagnoses Diagnosis Opioid dependence with unspecified opioid-induced disorder (CMS/HCC V24, CMS/HCC V28) documented in this encounter Care Teams Homemaking Rehabilitation Consultant Relationship Specialty Start Date End Date Physician, Pcp Unknown PCP - General 04/12/24 documented as of this encounter
--- OUTSIDE RECORDS SUMMARY | 2025-02-16 17:51 | XMS_ITS | Clinical Summary ---
Author Organization [facility] Address [address] [place] [address] Phone Care Team Providers Care Refrigerated National Truck Driver Name Role Phone Physician, Pcp Unknown Primary [...] 93 04/12/2024 6:45 AM EST Temperature 36.4 C (97.5 F) 04/12/2024 6:45 AM EST Respiratory Rate 18 04/12/2024 6:45 AM EST Oxygen Saturation 98% 04/12/2024 6:45 AM EST Inhaled Oxygen Concentration - - Weight 81.6 kg (180 lb) 04/11/2024 5:51 PM EST Height 177.8 cm (5' 10 ) 04/11/2024 5:51 PM EST Body Mass Index 25.83 04/11/2024 5:51 PM EST Plan of Treatment Health Maintenance Due Date Last Done Comments Hepatitis A Vaccines (1 of 2 - Risk 2-dose series) 10/08/1987 Hepatitis B Vaccines (1 of 3 - 19+ 3-dose series) 10/08/1987 Pneumococcal Vaccine: 50+ Years (1 of 1 - PCV) 2018 Zoster Vaccines (1 of 2) 2018 Cholesterol Screening (Lipid Panel) 03/18/2024 Colorectal Cancer Screening: Colonoscopy 03/18/2024 HIV Screening 03/18/2024 Hepatitis C Screening 03/18/2024 Social Influencers of Health Screening 03/18/2024 Depression Screening 06/09/2024 COVID-19 Vaccine (1 - 2023-2 5 season) 2025 Influenza Vaccine (#1) 2025 8, 02/03/2016 DTaP,Tdap,and Td Vaccines (3 - Td or [...] age to complete this topic Meningococcal B Vaccine Aged Out No l onger eligible based on patient's age to complete this topic RSV Immunization Patients Under 20 months Aged Out No longer eligible b ased on patient's age to complete this topic Varicella Vaccines Aged Out No longer eligible based on patient's age to complete this topic Insurance MEDICAID - [place] Care Teams Refrigerated National Truck Driver Relationship Specialty Start Date End Date Physician, Pcp Unknown PCP - General 04/12/24
== END 2025-02-16 15:46 | disposition home or self-care (01) ==
LOC: HO.HMCH 14:38
PROVIDERS: PCP Physician Assistant; Visit Provider Physician Assistant
DX: L03.119 Cellulitis of unspecified part of limb (principal); L02.419 Cutaneous abscess of limb, unspecified; M77.8 Other enthesopathies, not elsewhere classified; F17.200 Nicotine dependence, unspecified, uncomplicated

== ENCOUNTER 2025-02-16 14:37 | Outpatient (REF) | payer OTHER, SELFPAY | END 2025-02-16 14:38 | disposition home or self-care (01) | LOC: HO.LNP 14:37 | PROVIDERS: PCP Physician Assistant; Visit Provider Physician Assistant | DX: L03.115 Cellulitis of right lower limb (principal); L02.415 Cutaneous abscess of right lower limb; F17.210 Nicotine dependence, cigarettes, uncomplicated; M77.8 Other enthesopathies, not elsewhere classified | CPT/HCPCS: 87070; 87077; 87147; 87186; 87205; 96127; 99212 ==

== ENCOUNTER 2025-03-23 10:48 | Outpatient (AMB) | payer OTHER, SELFPAY ==
[2025-03-23 10:52] VITALS: BP 160/78; PULSE 85; RESP 18; TEMP 36.3; O2SAT 98; BMI 24.3
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
--- OUTSIDE RECORDS SUMMARY | 2025-03-23 13:08 | XMS_ITS | Encounter Summary ---
Author Organization [employer] Address [address] [place] [address] Care Team Providers Care Conveyor Loader Name Role Phone Physician, Pcp Unknown Primary Care Provider Colleen vailable Encounter Details Date Type Department Care Team (Late st Contact Info) Description 08/05/2024 Lab Requisition [facility] [address] [facility] [place] [address] Anay Lundy MD [facility] [place] [address] Opioid dependence with unspecified opioid-induced disorder (CMS/HCC [...] LAB CHEMISTRY METHOD 08/05/2024 7:53 PM EST [facility] Comment: Assay cutoff 50 mg/dL Semi-quantitative assay for screening purposes only. Unconfirmed screening result should not be used for non-medical purposes. Urine Urine specimen obtained by clean catch procedure / Unknown 08/05/2024 11:00 AM EST 08/05/2024 3:48 PM EST us Anay Lundy MD LAB URINE ORDERABLES Fi nal Result [facility] [address] [place] [address], [place] [phone] * Urinalysis with reflex microscopic (08/05/2024 11:00 AM EST) Specific Hunter Urine 1.016 1.003 - 1.030 LAB URINALYSIS [...] nal Result Performing Organization Address [facility] Co de Phone Number [facility] [address] [place] [address], [place] [phone] * Methadone, urine (08/05/2024 11:00 AM EST) [...] nal Result Performing Organization Address [facility] de Phone Number [facility] [address] [place] [address], [place] [phone] * Drug abuse screen 8a panel, urine [...] METHOD 08/05/2024 8:02 PM [facility] Opiate Screen, Ur Negative Negative LAB CHEMISTRY METHOD 08/05/2024 8:02 PM [facility] Cannabinoid (THC) Screen, Ur Negative Negative LAB CHEMISTRY METHOD 08/05/2024 8:02 PM [facility] Comment:Specimens from patie nts taking pantoprazole sodium (Protonix) have been shown to produce false positive results. Oxycodone Screen, Ur Negative Negative LAB CHEMISTRY METHOD 08/05/2024 8:02 PM [facility] Fentanyl, Ur Negative Negative LAB CHEMISTRY METHOD 08/05/2024 8:02 PM [facility] Urine Urine specimen obtained by clean catch procedure / Unknown 08/05/2024 11:00 AM EST 08/05/2024 3:02 PM EST [facility] - 08/05/2024 8:02 PM EST Assay cutoffs: Amphetamines 1000 ng/mL Barbiturates 200 ng/mL Benzodiazepines 200 ng/mL Cocaine 300 ng/mL Fentanyl 1 ng/mL Opiates 300 ng/mL Oxycodone 100 ng/mL THC 50 ng/mL Semi-quantitative assay for screening purposes only. Unconfirmed screening result should not be used for non-medical purposes. *ALTERNATE METHOD CONFIRMATION DONE UPON REQUEST ONLY* Anay Lundy MD LAB URINE ORDERABLES [facility] Result [facility]) [facility] [address] [place] [address], * Ethyl glucuronide urine with reflex confirmation [...] developed and the performance characteristics determined by [facility]. This confirmation testing has not been cleared or approved by the FDA. The laboratory is regulated under CLIA as qualified to perform high-complexity testing. This test is used for patient testing purposes. It should not be regarded as investigational or for research. Test performed at [facility], [address] , [place] [address] Mirlande Lo MD, PhD - [employer] Urine Urine specimen from urethra / Unknown 08/05/2024 11:00 AM EST 08/05/2024 3:02 PM EST us Anay Lundy MD LAB URINE ORDERABLES nal Result [facility] [address] [place], [place] [id number] documented in this encounter Visit Diagnoses Diagnosis Opioid dependence with unspecified opioid-induced disorder (CMS/HCC V24, CMS/HCC V28) documented in this encounter Care Teams Conveyor Loader Relationship Specialty Start Date End Date Physician, Pcp Unknown PCP - General 04/12/24 documented as of this encounter
--- OUTSIDE RECORDS SUMMARY | 2025-03-23 13:08 | XMS_ITS | Clinical Summary ---
Author Organization [facility] Address [address] [place] [address] Phone Care Team Providers Care [facility] Dem[employer]ation Agent Name Role Phone Physician, Pcp Unknown Primary [...] Health Maintenance Due Date Last Done Comments Colorectal Cancer Screening: Colonoscopy 1968 Hepatitis A Vaccines (1 of 2 - Risk 2-dose series) 10/08/1987 Hepatitis B Vaccines (1 of 3 - 19+ 3-dose series) 10/08/1987 Pneumococcal Vaccine: 50+ Years (1 of 1 - PCV) 2018 Zoster Vaccines (1 of 2) 2018 Cholesterol Screening (Lipid Panel) 03/18/2024 HIV Screening 03/18/2024 Hepatitis C Screening 03/18/2024 Social Influencers of Health Screening 03/18/2024 Depression Screening 06/09/2024 COVID-19 Vaccine (1 - 2023-2 5 season) 2025 Influenza Vaccine (#1) 2025 8, 02/03/2016 DTaP,Tdap,and Td Vaccines (3 - Td or Tdap) 07/02/2031 07/02/2021, 07/26/2020 RSV Immunization Adult Patients (1 - 1-dose 75+ series) 10/08/2043 HIB Vaccines Aged Out No longer eligi [...] topic Insurance MEDICAID - [place] Care Teams County Home Demonstration Agent Relationship Specialty Start Date End Date Physician, Pcp Unknown PCP - General 04/12/24
== END 2025-03-23 11:24 | disposition home or self-care (01) ==
LOC: HO.HMCH 10:49
PROVIDERS: PCP Physician Assistant; Visit Provider Physician Assistant
DX: J34.2 Deviated nasal septum (principal); S46.311A Strain of muscle, fascia and tendon of triceps, right arm, initial encounter; A49.02 Methicillin resistant Staphylococcus aureus infection, unspecified site; F33.1 Major depressive disorder, recurrent, moderate

== ENCOUNTER → 2025-03-23 10:48 | Outpatient (BNVA) | payer OTHER, SELFPAY | PROVIDERS: PCP Physician Assistant; Visit Provider Physician Assistant | DX: S46.311A Strain of muscle, fascia and tendon of triceps, right arm, initial encounter (principal); A49.02 Methicillin resistant Staphylococcus aureus infection, unspecified site; J34.2 Deviated nasal septum; F33.1 Major depressive disorder, recurrent, moderate; L02.419 Cutaneous abscess of limb, unspecified; L03.119 Cellulitis of unspecified part of limb; X58.XXXA Exposure to other specified factors, initial encounter; Y93.9 Activity, unspecified; Y92.9 Unspecified place or not applicable; Y99.9 Unspecified external cause status | CPT/HCPCS: 99212 ==

== ENCOUNTER 2025-05-20 14:05 | Outpatient (AMB) | payer OTHER, SELFPAY ==
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
[2025-05-20 14:21] VITALS: BP 123/71; PULSE 88; O2SAT 97; BMI 24.2
--- OUTSIDE RECORDS SUMMARY | 2025-05-20 19:28 | XMS_ITS | Encounter Summary ---
Author Organization [employer] Address [address] [place] [address] Care Team Providers Care Lift Team Technician Name Role Phone Physician, Pcp Unknown Primary Care Provider Colleen vailable Encounter Details Date Type Department Care Team (Late st Contact Info) Description 08/05/2024 Lab Requisition [facility] [address] [facility] [place] [address] Anay Lundy MD [facility] [place] [address] Opioid dependence with unspecified opioid-induced disorder (CMS/HCC [...] LAB CHEMISTRY METHOD 08/05/2024 7:53 PM EST [facility] Comment: Assay cutoff 50 mg/dL Semi-quantitative assay for screening purposes only. Unconfirmed screening result should not be used for non-medical purposes. Urine Urine specimen obtained by clean catch procedure / Unknown 08/05/2024 11:00 AM EST 08/05/2024 3:48 PM EST us Anay Lundy MD LAB URINE ORDERABLES Fi nal Result [facility] [address] [place] [address], [place] [phone] * Urinalysis with reflex microscopic (08/05/2024 11:00 AM EST) Specific [place] Urine 1.016 1.003 - 1.030 LAB URINALYSIS - AUTOMATED METHOD 08/05/2024 4:30 PM [facility] pH, Urine 6.5 5.0 - 8.0 pH LAB URINALYSIS - AUTOMATED METHOD 08/05/2024 4:30 PM [facility] Leukocytes, Urine Negative Negative LAB URINALYSIS - AUTOMATED METHOD 08/05/2024 4:30 PM [facility] Nitrite, Urine Negative Negative LAB URINALYSIS - AUTOMATED METHOD 08/05/2024 4:30 PM [facility] Protein, Urine Negative <=Trace mg/dL LAB URINALYSIS - AUTOMATED METHOD 08/05/2024 4:30 PM [facility] Glucose, Urine Negative Negative mg/dL LAB URINALYSIS - AUTOMATED METHOD 08/05/2024 4:30 PM [facility] Ketones, Urine Negative Negative mg/dL LAB URINALYSIS - AUTOMATED METHOD 08/05/2024 4:30 PM [facility] Urobilinogen, Urine 1.0 0.2 - 1.0 mg/dL LAB URINALYSIS - AUTOMATED METHOD 08/05/2024 4:30 PM [facility] Bilirubin, Urine Negative Negative LAB URINALYSIS - AUTOMATED METHOD 08/05/2024 4:30 PM [facility] Blood, Urine Negative Negative LAB URINALYSIS - AUTOMATED METHOD 08/05/2024 4:30 PM [facility] Urine Urine specimen obtained by clean catch procedure / Unknown 08/05/2024 11:00 AM EST 08/05/2024 3:02 PM EST Anay Lundy MD LAB URINE ORDERABLES Fi nal Result Performing Organization Address [facility] Co de Phone Number [facility] [address] [place] [address], [place] [phone] * Methadone, urine (08/05/2024 11:00 AM EST) Methadone Screen, Urine Negative Negative LAB CHEMISTRY METHOD 08/05/2024 8:02 PM [facility] Comment: Assay cutoff 300 ng/mL Semi-quantitative assay for screening purposes only. Unconfirmed screening result should not be used for non-medical purposes. *ALTERNATE METHOD CONFIRMATION DONE UPON REQUEST ONLY* Urine Urine specimen obtained by clean catch procedure / Unknown 08/05/2024 11:00 AM EST 08/05/2024 3:02 PM EST Anay Lundy MD LAB URINE ORDERABLES Fi nal Result Performing Organization Address [facility] de Phone Number [facility] [address] [place] [address], [place] [phone] * Drug abuse screen 8a panel, urine (08/05/2024 11:00 AM EST) Amphetamine Screen, Ur Negative Negative LAB CHEMISTRY METHOD 08/05/2024 8:02 PM [facility] Comment:Certain OTC medicati ons containing ephedrine, phenylephrine, pseudoephedrine and phenylpropanolamine can cause false positive results. Barbiturate Screen, Ur Negative Negative LAB CHEMISTRY METHOD 08/05/2024 8:02 PM [facility] Benzodiazepine Screen, Ur Negative Negative LAB CHEMISTRY METHOD 08/05/2024 8:02 PM [facility] Cocaine Screen, Ur Negative Negative LAB CHEMISTRY METHOD 08/05/2024 8:02 PM [facility] Opiate Screen, Ur Negative Negative LAB CHEMISTRY METHOD 08/05/2024 8:02 PM [facility] Cannabinoid (THC) Screen, Ur Negative Negative LAB CHEMISTRY METHOD 08/05/2024 8:02 PM [facility] Comment:Specimens from patie nts taking pantoprazole sodium (Protonix) have been shown to produce false positive results. Oxycodone Screen, Ur Negative Negative LAB CHEMISTRY METHOD 08/05/2024 8:02 PM [facility] Fentanyl, Ur Negative Negative LAB CHEMISTRY METHOD 08/05/2024 8:02 PM [facility] Urine Urine specimen obtained by clean catch procedure / Unknown 08/05/2024 11:00 AM EST 08/05/2024 3:02 PM EST [facility] - 08/05/2024 8:02 PM EST Assay cutoffs: Amphetamines 1000 ng/mL Barbiturates 200 ng/mL Benzodiazepines 200 ng/mL Cocaine 300 ng/mL Fentanyl 1 ng/mL Opiates 300 ng/mL Oxycodone 100 ng/mL THC 50 ng/mL Semi-quantitative assay for screening purposes only. Unconfirmed screening result should not be used for non-medical purposes. *ALTERNATE METHOD CONFIRMATION DONE UPON REQUEST ONLY* Anay Lundy MD LAB URINE ORDERABLES [facility] Result [facility] [address] [place] [address], * Ethyl glucuronide urine with reflex confirmation [...] developed and the performance characteristics determined by [facility]. This confirmation testing has not been cleared or approved by the FDA. The laboratory is regulated under CLIA as qualified to perform high-complexity testing. This test is used for patient testing purposes. It should not be regarded as investigational or for research. Test performed at [facility], [address] , [place] [address] Mirlande Lo MD, PhD - Manager [employer] Urine Urine specimen from urethra / Unknown 08/05/2024 11:00 AM EST 08/05/2024 3:02 PM EST us Anay Lundy MD LAB URINE ORDERABLES nal Result [facility] [address] [place], [place] [id number] documented in this encounter Visit Diagnoses Diagnosis Opioid dependence with unspecified opioid-induced disorder (CMS/HCC V24, CMS/HCC V28) documented in this encounter Care Teams Lift Team Technician Relationship Specialty Start Date End Date Physician, Pcp Unknown PCP - General 04/12/24 documented as of this encounter
--- OUTSIDE RECORDS SUMMARY | 2025-05-20 19:28 | XMS_ITS | Clinical Summary ---
Author Organization [facility] Address [address] [place] [address] Phone Care Team Providers Care Plant Changer Name Role Phone Physician, Pcp Unknown Primary [...] on file Sexual Orientation Not on file Last Filed Vital Signs Vital Sign Reading [...] Depression Screening 06/09/2024 COVID-19 Vaccine (1 - 2024-2 6 season) 2025 Influenza Vaccine (#1) 2025 8, [...] topic Insurance MEDICAID - [place] Care Teams Plant Changer Relationship Specialty Start Date End Date Physician, Pcp Unknown PCP - General 04/12/24
== END 2025-05-20 14:41 | disposition home or self-care (01) ==
LOC: HO.PMC 14:06
PROVIDERS: PCP Physician Assistant; Visit Provider Nurse Practitioner Family
DX: S46.311A Strain of muscle, fascia and tendon of triceps, right arm, initial encounter (principal); M77.8 Other enthesopathies, not elsewhere classified; M17.12 Unilateral primary osteoarthritis, left knee; M25.552 Pain in left hip; M25.511 Pain in right shoulder; M24.129 Other articular cartilage disorders, unspecified elbow
CPT/HCPCS: 99204

== ENCOUNTER → 2025-05-20 14:05 | Outpatient (BNVA) | payer OTHER, SELFPAY | PROVIDERS: PCP Physician Assistant; Visit Provider Nurse Practitioner Family | DX: S46.311A Strain of muscle, fascia and tendon of triceps, right arm, initial encounter (principal); M77.8 Other enthesopathies, not elsewhere classified; M17.12 Unilateral primary osteoarthritis, left knee; M25.552 Pain in left hip; M25.511 Pain in right shoulder; M24.129 Other articular cartilage disorders, unspecified elbow; X58.XXXA Exposure to other specified factors, initial encounter | CPT/HCPCS: 99202 ==